=== PATIENT | male | born 1965 | race Caucasian/White ===

== ENCOUNTER → 2016-08-16 | Outpatient (CLI) | payer BC ==
[~2016-08-16] MED LIST: CALCTAB5 PO; CLR10 PO; MULT-506 PO; OMEG10007 PO
[2016-08-16 17:56] LABS: ALT/SGPT 47 U/L (12-78); AST/SGOT 19 U/L (15-37); BLOOD UREA NITROGEN 15 mg/dl (7-18); BUN/CREATININE RATIO 12.2 (10-20); CARBON DIOXIDE 24 mmol/L (21-32); CHLORIDE 104 mmol/L (98-107); GLUCOSE 85 mg/dl (70-99); MAGNESIUM 2.1 mg/dl (1.8-2.4); SODIUM 139 mmol/L (136-145)
[2016-08-16 18:07] LABS: ALB/GLOB RATIO 1.2 (0.9-2); ALKALINE PHOSPHATASE 86 U/L (45-117); THYROID STIMULATING HORMONE 0.497 uIu/ml (0.300-4.500)
[2016-08-16 18:20] LABS: LYME DISEASE AB IGG NEG (NEG); LYME DISEASE AB IGM NEG (NEG)
== END | disposition home or self-care (01) ==
LOC: C.LABPVFM 13:33
PROVIDERS: ATTEND Family Medicine
DX: R53.83 Other fatigue (principal); M79.1 Myalgia; M60.9 Myositis, unspecified

== ENCOUNTER → 2017-09-05 | Outpatient (CLI) | payer BC ==
[2017-09-05 12:54] LABS: HEMATOCRIT 49.1 % (42-52); HEMOGLOBIN 16.7 g/dL (14.0-18.0); MEAN CELL VOLUME 94.2 fL (80-100); MEAN CORPUSCULAR HEMOGLOBIN 32.1 pg (25-34); MEAN PLATELET VOLUME 9.9 fL (7.4-10.4); PLATELET COUNT 252 K/uL (130-400); RED CELL DISTRIBUTION WIDTH CV 14.4 % (11.5-14.5); RED CELL DISTRIBUTION WIDTH SD 49.9 fL (36.4-46.3); WHITE BLOOD COUNT 7.01 K/uL (4.8-10.8)
[2017-09-05 13:24] LABS: ALBUMIN 4.2 gm/dl (3.4-5.0); ALT/SGPT 47 U/L (12-78); AST/SGOT 27 U/L (15-37); BLOOD UREA NITROGEN 14 mg/dl (7-18); CALCIUM 8.9 mg/dl (8.5-10.1); CARBON DIOXIDE 25 mmol/L (21-32); GLUCOSE 90 mg/dl (70-99); POTASSIUM 4.3 mmol/L (3.5-5.1); SODIUM 136 mmol/L (136-145)
[2017-09-05 13:26] LABS: ALKALINE PHOSPHATASE 86 U/L (45-117); CHOLESTEROL 203 mg/dl (0-200); LDL CHOLESTEROL CALCULATED 114 mg/dl; TOTAL PROTEIN 8.3 gm/dl (6.4-8.2)
== END | disposition home or self-care (01) ==
LOC: C.LABPVFM 09:36
PROVIDERS: ATTEND Family Medicine
DX: E55.9 Vitamin D deficiency, unspecified (principal)

== ENCOUNTER 2024-07-13 16:02 | Observation (INO) ==
[2024-07-13] MEDS: ADENOSINE IV SOLN 3 MG/ML 2 ML VIAL IV STA ×2 (16:18→16:21)
--- NOTE | 2024-07-13 16:26 | Emergency Department Note ---
Impression & Plan SVT (supraventricular tachycardia), Elevated troponin ED Provider Note HISTORY OF PRESENT ILLNESS: Patient is a 58-year-old male presenting with tachycardia. Patient reports that around 12 noon today he started feeling like his heart was racing. He thought that symptoms were just improved, but after a very short walk with his he was still feeling like his heart rate was very high and decided to come get evaluated. He is complaining of some slight chest pressure with how fast his heart rate is going. He does report some slight shortness of breath as well. He denies ever having SVT before. Denies any recent medication changes. Denies any recreational drug use. Denies any DVT or PE history. He is not on any anticoagulation. He denies any excessive caffeine or energy drink use. ROS: as above PHYSICAL EXAM: Constitutional: Patient appears in no acute distress. HENT: Head: Normocephalic and atraumatic. Eyes: EOMI, PERRL Mouth/Throat: Mucous membranes moist. Neck: Trachea midline. Neck supple. Cardiovascular: Tachycardic with regular rhythm. No murmurs, rubs or gallops. Intact distal pulses. Pulmonary/Chest: No respiratory distress. Breath sounds clear and equal bilaterally. No wheezes or rales. Abdominal: Abdomen soft, no tenderness, rebound or guarding. Musculoskeletal: No edema, tenderness or deformity noted. Skin: Warm and dry. No rash, erythema, pallor or cyanosis Psychiatric: Appropriate mood and affect for situation. Neurological: Alert and keenly responsive. CN II-XII grossly intact, moving all extremities equally and fully. MDM: - Vitals signs showed tachycardia - History obtained via patient. History as above. - Chronic conditions affecting care: HTN; GERD - Differential diagnoses include, but are not limited to: ACS; sepsis; electrolyte abnormality; dysrhythmia; PE; pneumonia; dehydration; hyperthyroidism - Order placed for continuous cardiac monitoring. At this time, monitor showed rate of 101 bpm with normal sinus rhythm, per my interpretation. - External medical records reviewed. Primary care visit note dated 05/06/2024 was reviewed. Patient followed in their clinic for his multiple medical etiologies. He has a history of hypertension and BPH. - EKG obtained at 16:12 interpreted by myself showed supraventricular tachycardia. Rate 176 bpm. QT 258. No acute ischemic changes. - IV access was obtained and patient was placed on the rn cardiac. Patient was connected to pads for the cardiac cart. A bolus of normal saline was administered through one of the IVs. 6 mg of adenosine was initially given for chemical cardioversion. However, the patient did not convert out of his SVT. He was given additional 12 mg of IV adenosine. Patient was noted to go back into a normal sinus rhythm on rn cardiac. Repeat EKG obtained at 16:22 interpreted by myself showed normal sinus rhythm. Rate tachycardic at 108 bpm. QT 324. No acute ischemic changes. Patient's blood pressure stable in the 140s systolic after he was successfully chemically cardioverted to sinus rhythm. - Laboratory workup interpreted by myself showed normal WBC; stable electrolytes; normal TSH; normal PT/INR; elevated troponin (28.2) - CXR negative for pneumothorax or pneumonia, per my interpretation. - On further discussion with the patient, he does report significant family history of coronary artery disease in his father. - Patient's heart rate remained stable in the emergency department for over 2.5 hours in the 80s to 90s bpm. He has no chest pain or shortness of breath on reassessment. He did ambulate in the emergency department without any further elevation in his heart rate or flipping into a dysrhythmia. However, patient's repeat troponin elevated at 76.8. patient reports he has never had formal stress test or heart catheterization performed or any formal cardiac workup. - Discussion was had with therapeutic case manager about patient's case and need for admission - Hospitalist, Dr. Saldaña, consulted for admission. She requested cardiology consultation. - Discussed case with [facility] Materials Coordinator county home demonstration agent, Dr. Nix, at 19:39. She recommended that the patient be admitted and have an echocardiogram done in the morning. She believes that the EKG might show AV node reentry tachycardia. Recommends trending the troponins and echocardiogram in the morning. Passed along recommendations to inpatient hospitalist. - [facility] I have personally spent 37 minutes of critical care time in the direct management of this patient. This includes bedside care, interpretation of diagnostic studies, and testing, discussion with consultants, patient, and family members, and other required patient management activities. This 37 minutes is in excess of all separately billable procedures. ASSESSMENT AND PLAN: Diagnosis: SVT; elevated troponin Plan: admit Past Med/Surg History Problem List (Updated 07/13/24 @ 19:06 by Mary Jo Rodriguez MD) Elevated troponin (Acute) SVT (supraventricular tachycardia) (Acute) Lipoma Bilateral hip pain Acute right hip pain Low back pain radiating to lower extremity BPH (benign prostatic hypertrophy) Elevated hemoglobin A1c Ganglion cyst of tendon sheath of left hand Acute URI of multiple sites Cervical spinal stenosis Cervical radiculopathy Radicular pain in left arm Left shoulder pain Shoulder pain Cough due to MELVIN inhibitor HTN (hypertension), benign Screening for lipid disorders Screening for diabetes mellitus Exposure to COVID-19 virus Back problem GERD (gastroesophageal reflux disease) Elevated BP without diagnosis of hypertension (Acute) Routine health maintenance (Chronic) ED (erectile dysfunction) (Chronic) Paresthesias (Chronic) Vitamin D deficiency (Chronic) Encounter for pre-operative examination Perirectal abscess (Acute) Medical History Cervical radiculopathy History of rectal abscess has had I&D x 2 Cervical spinal stenosis has 75 % rom Low back pain GERD (gastroesophageal reflux disease) Hypertension BPH (benign prostatic hyperplasia) Osteoarthritis History of colon polyps Surgical History History of open reduction and internal fixation (ORIF) procedure right arm fracture, in highschool Hx of colonoscopy with polypectomy Status post incision and drainage (2017) Incision and Drainage [place] Rectal Abscess 04/27/15 Dr. Peralta also in 2017 in [place], [place] History of lymph node excision off right side of neck--benign History of oral surgery gum graft History of tooth extraction History of wisdom tooth extraction Family History Daughter Family history of reaction to anesthesia gets red/flushed and slight increase in temp---denies malignant hyperthermia Father Family hx colonic polyps Myocardial infarction Prostate cancer Heart disease Hypertension Mother Heart disease Hypertension Denies family history of Ovarian cancer Breast cancer Colorectal cancer Social History (Updated 05/08/24 @ 14:55 by Catherine Vale LPN) Smoking Status: Never smoker Tobacco Type: Smokeless Tobacco (Dip or Chew) Second Hand Exposure: No; Do You Dip or Chew Tobacco: Yes (1/2-1 can per day); Hx Alcohol Use: No Hx Substance Use: No Preferred Language: Arabic Communication Ability: Effective Visual Impairment: Limited Hearing Ability: Use of Hearing Aid Registry Rn Required: No Beliefs That Will Affect Care: None marital status: Current Living Situation: Spouse Current Living Situation Comment: Lives with and son. current occupational status: employed How many Children do You have: 2 Feels Safe at Home: Yes Childhood Exposure to Second-Hand Smoke: Yes Diet: regular caffeine: Yes during the past year weight has: remained stable Dental Care, Regularly: Yes Physical Activity Frequency: Does not Exercise Seatbelt Use: always Sunscreen Use: No Do you think of yourself as: straight/heterosexual Sexual Activity: has been sexually active within the last 12 months Gender Identity: Male Assistive Devices: Glasses and Hearing Aid - Bilateral Allergies Allergies Allergy/AdvReac Type Severity Reaction Status Date / Time sodium fluoride Allergy Mild Swelling Verified 07/11/24 13:00 of Lip/Tongue/Throat Home Meds Home Medications Medication Instructions Recorded Confirmed cholecalciferol (vitamin D3) 50 2,000 unit PO QAM 03/18/19 07/11/24 mcg (2,000 unit) tablet (Vitamin D3) multivitamin 1 tab PO QAM 03/18/19 07/11/24 naproxen sodium 220 mg capsule 220 mg PO QID PRN Pain 05/08/24 07/11/24 (Aleve) amlodipine 5 mg tablet 5 mg PO QAM 07/11/24 07/11/24 fexofenadine 180 mg tablet 180 mg PO DAILY PRN allergies 07/11/24 07/11/24 (Alissa Allergy) losartan 25 mg tablet 25 mg PO QAM 07/11/24 07/11/24 losartan 50 mg tablet 50 mg PO QAM 07/11/24 07/11/24 sulfamethoxazole 800 1 tab PO BID PRN abscess periananl 07/11/24 07/11/24 mg-trimethoprim 160 mg tablet (Bactrim DS) Previous Rx's Medication Instructions Recorded tadalafil 5 mg tablet (Cialis) 5 mg PO DAILY PRN sexual activity 03/04/22 #10 tabs cyclobenzaprine 10 mg tablet 10 mg PO TID PRN muscle spasm #25 07/05/23 tabs peg [id number] See Rx Instructions PO .COMPLEX #2 07/10/24 178.7-7.3-0.5-1.12-0.9 gram oral mL soln (Suflave) Results & Data (ED) Vital Signs Vital Signs - 24 hr 07/13/24 16:06 07/13/24 16:14 07/13/24 16:26 Temperature 36.5 C Temperature Source Temporal Artery Scan Pulse Rate 181 H 174 H Pulse Rate [Apical] Pulse Rhythm [Apical] Pulse Strength [Apical] Respiratory Rate 18 Respiratory Effort / Characteristics Non-Labored Spontaneous Respiratory Depth Normal Respiratory Pattern Blood Pressure 116/66 Blood Pressure [Right Arm] Blood Pressure Mean 82 Blood Pressure Mean [Right Arm] Blood Pressure Position [Right Arm] Pulse Oximetry 94 Oxygen Delivery Method Room Air Room Air Sepsis Recent Fever Within 48 Hours No Sepsis New/Unexplained Change in Mental Status No Sepsis Action Taken by Nursing No Action Required 07/13/24 16:26 07/13/24 16:28 07/13/24 18:03 Temperature Temperature Source Pulse Rate 102 H Pulse Rate [Apical] 101 H 96 H Pulse Rhythm [Apical] Regular Regular Pulse Strength [Apical] Normal Normal Respiratory Rate 20 18 Respiratory Effort / Characteristics Non-Labored Spontaneous Non-Labored Spontaneous Respiratory Depth Normal Normal Respiratory Pattern Regular Regular Blood Pressure Blood Pressure [Right Arm] 121/80 141/94 H Blood Pressure Mean Blood Pressure Mean [Right Arm] 93 109 Blood Pressure Position [Right Arm] Lying Lying Pulse Oximetry 95 95 Oxygen Delivery Method Room Air Room Air Sepsis Recent Fever Within 48 Hours Sepsis New/Unexplained Change in Mental Status Sepsis Action Taken by Nursing Laboratory Data 07/13/24 16:18 07/13/24 16:18 Lab Results 07/13/24 07/13/24 07/13/24 Range/Units 16:18 18:00 19:08 WBC 8.01 (4.8-10.8) K/ul RBC 5.33 (4.70-6.10) M/uL Hgb 17.1 (14.0-18.0) g/dl Hct 49.9 (42.0-52.0) % MCV 93.6 (80.0-100.0) fL MCH 32.1 (25.0-34.0) pg MCHC 34.3 (32.0-36.0) g/dL RDW Std Deviation 47.6 H (36.4-46.3) fL RDW Coeff of Courtney 13.8 (11.5-14.5) % Plt Count 289 (130-400) K/uL MPV 9.8 (9.4-12.4) fL Immature Gran % (Auto) 0.2 % Neut % (Auto) 53.3 % Lymph % (Auto) 29.3 % [place] % (Auto) 12.7 % Eos % (Auto) 3.5 % Baso % (Auto) 1.0 % Neut # (Auto) 4.26 (1.40-6.50) K/uL Lymph # (Auto) 2.35 (1.20-3.40) K/uL [place] # (Auto) 1.02 H (0.11-0.59) K/uL Eos # (Auto) 0.28 (0.00-0.50) K/uL Baso # (Auto) 0.08 (0.00-0.20) K/uL Immature Gran # (Auto) 0.02 (0.01-0.20) K/uL PT 10.3 (9.0-12.0) Seconds INR 0.9 (0.9-1.1) Sodium 139 (136-145) mmol/L Potassium 3.8 (3.5-5.1) mmol/L Chloride 104 (98-107) mmol/L Carbon Dioxide 27 (21-32) mmol/L Anion Gap 8 (3-11) BUN 15 (6-23) mg/dl Creatinine 1.12 (0.6-1.4) mg/dl Est Cr Clr Drug Dosing 87.9 ml/min eGFR 77.10 BUN/Creatinine Ratio 13.4 (10-20) Glucose 112 H (70-99(Fasting)) mg/dl Calcium 8.8 (8.6-10.3) mg/dl Magnesium 1.9 (1.7-2.4) mg/dl Total Bilirubin 0.6 (0.2-1.0) mg/dl AST 27 (13-39) U/L ALT 42 (7-52) U/L Alkaline Phosphatase 84 (34-104) U/L Troponin I High Sens 28.2 H 76.8 H* D (0-20) pg/ml Total Protein 7.3 (6.0-8.3) gm/dl Albumin 4.6 (3.4-5.0) gm/dl Globulin 2.7 (2.5-4.0) gm/dl Albumin/Globulin Ratio 1.7 (0.9-2) TSH 1.661 (0.300-4.500) uIu/ml Urine Color Yellow Urine Appearance Clear (Clear) Urine pH 7.5 (4.5-7.5) Ur Specific [place] 1.010 (1.000-1.030) Urine Protein Negative (Negative) Urine Glucose (UA) Negative (Negative) Urine Ketones Negative (Negative) Urine Blood Negative (Negative) Urine Nitrite Negative (Negative) Urine Bilirubin Negative (Negative) Urine Urobilinogen Negative (Negative) Ur Leukocyte Esterase Negative (Negative) Administered Medications Discontinued Medications Adenosine (Adenosine Iv Soln 3 Mg/Ml 2 Ml Vial) Confirm Administered Dose 12 mg IV .Headroom-MED ONE Stop: 07/13/24 16:15 Last Admin: 07/13/24 16:47 Dose: Not Given Documented By: PEDRO Adenosine (Adenosine Iv Soln 3 Mg/Ml 2 Ml Vial) 6 mg IV NOW STA Stop: 07/13/24 16:47 Last Admin: 07/13/24 16:18 Dose: 6 mg Documented By: PEDRO Adenosine (Adenosine Iv Soln 3 Mg/Ml 2 Ml Vial) 12 mg IV NOW STA Stop: 07/13/24 16:47 Last Admin: 07/13/24 16:21 Dose: 12 mg Documented By: PEDRO Imaging Data Radiologist's Impression: Chest X-Ray 07/13/24 16:23 INDICATION: Chest pain. TECHNIQUE: Frontal radiograph of the chest. COMPARISON: None. FINDINGS: Cardiomegaly. Low inspiratory depth. Pulmonary vasculature appear within normal limits. Subsegmental atelectasis in the lung bases. No infiltrate, pleural effusion or pneumothorax. No acute osseous abnormality evident. IMPRESSION: No acute cardiopulmonary process. Electronically signed by Austin Kincaid 07-13-2024 4:55 PM Discharge Plan Visit Data Chief Complaint: Tachycardia Stated Complaint: TACHYCARDIA,HTN,FEELS OFF ED Provider: Mary Jo Rodriguez Discharge Problem: SVT (supraventricular tachycardia), Elevated troponin Forms Stand Alone Forms: [facility] [employer] Prescriptions Prescriptions: No Action cyclobenzaprine 10 mg tablet 10 mg PO TID PRN (Reason: muscle spasm) Qty: 25 4RF Suflave 178.7-7.3-0.5 gram recon soln See Rx Instructions PO .COMPLEX Qty: 2 0RF Rx Instructions: orally; orally; TAKE FIRST DOSE AT 6 PM AND SECOND DOSE 6 HOURS PRIOR TO PROCEDURE BIN: [id number] PCN: [id number] GROUP: [id number] tadalafil [Cialis] 5 mg tablet 5 mg PO DAILY PRN (Reason: sexual activity) Qty: 10 0RF Rx Instructions: administer approximately 30min before sexual activity; do not use more than 1 dose per 24hrs naproxen sodium [Aleve] 220 mg capsule 220 mg PO QID PRN (Reason: Pain) multivitamin Tablet 1 tab PO QAM cholecalciferol (vitamin D3) [Vitamin D3] 2,000 unit Tablet 2,000 unit PO QAM losartan 50 mg tablet 50 mg PO QAM amlodipine 5 mg tablet 5 mg PO QAM sulfamethoxazole-trimethoprim [Bactrim DS] 800-160 mg tablet 1 tab PO BID PRN (Reason: abscess periananl) losartan 25 mg tablet 25 mg PO QAM Rx Instructions: take with the 50mg dose for a total of 75mg daily. fexofenadine [Alissa Allergy] 180 mg Tablet 180 mg PO DAILY PRN (Reason: allergies) Referrals Referrals: Carlene Gill MD [Primary Care Provider] -
[2024-07-13 16:41] LABS: Basophils # (auto) 0.08 K/uL (0.00-0.20); Eosinophils # (auto) 0.28 K/uL (0.00-0.50); Eosinophils % (auto) 3.5 %; Hematocrit (blood only) 49.9 % (42.0-52.0); Hemoglobin 17.1 g/dl (14.0-18.0); Immature Granulocytes # (auto) 0.02 K/uL (0.01-0.20); Immature Granulocytes % (auto) 0.2 %; Lymphocytes # (auto) 2.35 K/uL (1.20-3.40); Lymphocytes % (auto) 29.3 %; Mean Corpuscular Hemoglobin 32.1 pg (25.0-34.0); Mean Corpuscular Hgb Conc 34.3 g/dL (32.0-36.0); Mean Corpuscular Volume 93.6 fL (80.0-100.0); Mean Platelet Volume 9.8 fL (9.4-12.4); Monocytes # (auto) 1.02 K/uL (0.11-0.59); Monocytes % (auto) 12.7 %; Neutrophils # (auto) 4.26 K/uL (1.40-6.50); Neutrophils % (auto) 53.3 %; Platelet Count 289 K/uL (130-400); RDW Coefficient of Variation 13.8 % (11.5-14.5); RDW Standard Deviation 47.6 fL (36.4-46.3); Red Blood Count 5.33 M/uL (4.70-6.10); White Blood Count 8.01 K/ul (4.8-10.8)
[2024-07-13] MEDS: ADENOSINE IV SOLN 3 MG/ML 2 ML VIAL IV ONE (16:47)
[2024-07-13 16:49] LABS: Albumin Globulin Ratio 1.7 (0.9-2); Albumin Level 4.6 gm/dl (3.4-5.0); BUN Creatinine Ratio 13.4 (10-20); Bilirubin,Total 0.6 mg/dl (0.2-1.0); Calcium 8.8 mg/dl (8.6-10.3); Creatinine Clr Calc Pharmacy 87.9 ml/min; Globulin 2.7 gm/dl (2.5-4.0); Magnesium 1.9 mg/dl (1.7-2.4); Potassium 3.8 mmol/L (3.5-5.1); Total Protein 7.3 gm/dl (6.0-8.3)
[2024-07-13 16:55] LABS: Troponin I High Sensitivity 28.2 pg/ml (0-20)
--- NOTE | 2024-07-13 16:57 | XRay Report ---
INDICATION: Chest pain. TECHNIQUE: Frontal radiograph of the chest. COMPARISON: None. FINDINGS: Cardiomegaly. Low inspiratory depth. Pulmonary vasculature appear within normal limits. Subsegmental atelectasis in the lung bases. No infiltrate, pleural effusion or pneumothorax. No acute osseous abnormality evident. IMPRESSION: No acute cardiopulmonary process. Electronically signed by Austin Kincaid 07-13-2024 4:55 PM
[2024-07-13 17:04] LABS: Thyroid Stimulating Hormone 1.661 uIu/ml (0.300-4.500)
[2024-07-13 17:07] LABS: INR 0.9 (0.9-1.1); Prothrombin Time 10.3 Seconds (9.0-12.0)
[2024-07-13 19:27] LABS: Appearance Urine Clear (Clear); Bilirubin Urine Negative (Negative); Blood Urine Negative (Negative); Color Urine Yellow; Glucose Urine UA Negative (Negative); Ketones Urine Negative (Negative); Leukocyte Esterase Urine Negative (Negative); Nitrite Urine Negative (Negative); Protein Urine Negative (Negative); Urobilinogen Urine Negative (Negative); pH Urine 7.5 (4.5-7.5)
--- NOTE | 2024-07-13 19:50 | History & Physical Report ---
Date of Service July 13, 2024 Assessment & Plan (1) SVT (supraventricular tachycardia): (2) Elevated troponin: Plan 58-year-old with PMHx HTN, BPH, OA, GERD, and vitamin D deficiency presenting to ED for approximately 4 hours of palpitations. Symptoms started around noon on the day of arrival, when he felt his heart was racing. Had associated diaphoresis. No chest pain, no SOB. Never had this happen before. Patient received 6 mg then 12 mg of adenosine, EKG around 1630 NSR. Elevated troponin, 28.2 at repeat 76.8. EKG without ischemic changes. Otherwise labs grossly WNL, BioFire negative, CXR without acute process. #SVT/Elevated troponin/HTN HR 170s-180s on arrival, requiring 6mg then 12mg of adenosine. SVT broke ~ 1420 after 2nd dose adenosine, NS since, rate 80-90s. No history of SVT or additional cardiac history. No chest pain, pressure, palpitations or SOB. ED provider discussed case with cardiology. Does have elevated troponin, trending. BPs have been relatively stable during ED course and at time of admission. - Admit med/tele for observation overnight, hopeful d/c next day - On amlodipine 5mg and losartan 75mg total for HTN as outpatient - Troponin 28.2, 76.8 on repeat, will trend to peak; EKG w/o ischemic changes - Elevated troponin likely 2/2 SVT - Echo pending - Cardiology consulted- appreciate input + recs #Cervical spine stenosis- Cyclobenzaprine prn; follows with [facility] #ED- Cialis prn, did not take day of arrival Dispo: Admit, med/tele VTE prophylaxis: Lovenox This document was dictated utilizing Technical Machine. Please excuse any grammatical errors that may be secondary to use of this software. Admission and Anticipated Discharge Date Admission Date: 07/13/2024 History of Present Illness Chief Complaint: Tachycardia Primary Care Provider: Carlene Gill MD 58-year-old with PMHx HTN, BPH, OA, GERD, and vitamin D deficiency presenting to ED for approximately 4 hours of palpitations. Symptoms started around noon on the day of arrival, when he felt his heart was racing and he became diaphoretic. States he took a short walk with his a little while after this initially happened and he noticed that his heart rate continued to stay elevated so he came to be evaluated. Denying chest pain or pressure of any kind. No shortness of breath, palpitations, or N/V. Overall denying diarrhea/constipation, abdominal pain, numbness/tingling, fever/chills or LUTS. In the ED, patient was given adenosine 6 mg, then was found to still be in SVT so additional 12 mg of adenosine was given and patient broke SVT on EKG at 1622. Patient's troponin was found to be elevated 28.2, and repeat was 76.8. EKG without ischemic changes. Otherwise labs are grossly WNL, bio fire was negative and CXR revealed no acute process. Please see Dr. Saldaña's attestation for adjustments/additions to treatment plan. Allergies Allergy/AdvReac Type Severity Reaction Status Date / Time sodium fluoride Allergy Mild Swelling Verified 07/13/24 20:32 of Lip/Tongue/Throat Home Medications Medication Instructions Recorded Confirmed Type cholecalciferol (vitamin D3) 50 2,000 unit PO QAM 03/18/19 07/13/24 History mcg (2,000 unit) tablet (Vitamin D3) multivitamin 1 tab PO QAM 03/18/19 07/13/24 History tadalafil 5 mg tablet (Cialis) 5 mg PO DAILY PRN sexual activity 03/04/22 07/13/24 Rx #10 tabs cyclobenzaprine 10 mg tablet 10 mg PO TID PRN muscle spasm #25 07/05/23 07/13/24 Rx tabs naproxen sodium 220 mg capsule 220 mg PO QID PRN Pain 05/08/24 07/13/24 History (Aleve) peg 3350-sod [id number] See Rx Instructions PO .COMPLEX #2 07/10/24 07/13/24 Rx 178.7-7.3-0.5-1.12-0.9 gram oral mL soln (Suflave) amlodipine 5 mg tablet 5 mg PO QAM 07/11/24 07/13/24 History fexofenadine 180 mg tablet 180 mg PO DAILY PRN allergies 07/11/24 07/13/24 History (Alissa Allergy) losartan 25 mg tablet 25 mg PO QAM 07/11/24 07/13/24 History losartan 50 mg tablet 50 mg PO QAM 07/11/24 07/13/24 History sulfamethoxazole 800 1 tab PO BID PRN abscess periananl 07/11/24 07/13/24 History mg-trimethoprim 160 mg tablet (Bactrim DS) Past Med/Surg History Problem List Elevated troponin (Acute) SVT (supraventricular tachycardia) (Acute) Lipoma Bilateral hip pain Acute right hip pain Low back pain radiating to lower extremity BPH (benign prostatic hypertrophy) Elevated hemoglobin A1c Ganglion cyst of tendon sheath of left hand Acute URI of multiple sites Cervical spinal stenosis Cervical radiculopathy Radicular pain in left arm Left shoulder pain Shoulder pain Cough due to MELVIN inhibitor HTN (hypertension), benign Screening for lipid disorders Screening for diabetes mellitus Exposure to COVID-19 virus Back problem GERD (gastroesophageal reflux disease) Elevated BP without diagnosis of hypertension (Acute) Routine health maintenance (Chronic) ED (erectile dysfunction) (Chronic) Paresthesias (Chronic) Vitamin D deficiency (Chronic) Encounter for pre-operative examination Perirectal abscess (Acute) Medical History Cervical radiculopathy History of rectal abscess has had I&D x 2 Cervical spinal stenosis has 75 % rom Low back pain GERD (gastroesophageal reflux disease) Hypertension BPH (benign prostatic hyperplasia) Osteoarthritis History of colon polyps Surgical History History of open reduction and internal fixation (ORIF) procedure right arm fracture, in highschool Hx of colonoscopy with polypectomy Status post incision and drainage (2017) Incision and Drainage [place] Rectal Abscess 04/27/15 Dr. Peralta also in 2017 in [place], [place] History of lymph node excision off right side of neck--benign History of oral surgery gum graft History of tooth extraction History of wisdom tooth extraction Family History Daughter Family history of reaction to anesthesia gets red/flushed and slight increase in temp---denies malignant hyperthermia Father Family hx colonic polyps Myocardial infarction Prostate cancer Heart disease Hypertension Mother Heart disease Hypertension Denies family history of Ovarian cancer Breast cancer Colorectal cancer Social History Smoking Status: Never smoker Tobacco Type: Smokeless Tobacco (Dip or Chew) Second Hand Exposure: No; Do You Dip or Chew Tobacco: Yes (1/2-1 can per day); Hx Alcohol Use: No Hx Substance Use: No Preferred Language: Northern Irish Communication Ability: Effective Visual Impairment: Limited 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 current occupational status: employed How many Children do You have: 2 Feels Safe at Home: Yes Childhood Exposure to Second-Hand Smoke: Yes Diet: regular caffeine: Yes during the past year weight has: remained stable Dental Care, Regularly: Yes Physical Activity Frequency: Does not Exercise Seatbelt Use: always Sunscreen Use: No Do you think of yourself as: straight/heterosexual Sexual Activity: has been sexually active within the last 12 months Gender Identity: Male Assistive Devices: Glasses and Hearing Aid - Bilateral Review of Systems Review of Systems: All systems reviewed & are unremarkable except as noted in Subjective Physical Exam Physical Exam: General: No acute distress Skin: Warm and dry, without rashes or lesions Head: Normocephalic, atraumatic Eyes: PERRL, conjunctivae clear, sclera non-icteric; EOM intact ENT: External ear and ear canal without swelling; nose atraumatic; good dentition, tongue normal appearance, pharynx normal Neck: Supple, no LAD; no JVD Cardio: Tachycardia ~ 90s, regular rhythm, no M/G/R, S1 and S2 normal Resp: No respiratory distress, Lungs CTA in all lobes bilaterally, no wheezes, rales, or rhonchi Abdomen: Soft, symmetric, nontender; no distention; No masses or hepatospl enomegaly; Bowel sounds normoactive MSK: No deformities, full ROM throughout; pulses palpable and equal; no edema. Neuro: Awake, alert; CN grossly intact Psych: Appropriate mood and affect; good judgement and insight. present in room at time of visit. Results & Data Results & Data Vital Signs (Past 12 Hours) Vital Signs Temp Pulse Pulse Resp BP BP Pulse Ox 07/13/24 18:03 96 H 18 141/94 H 95 07/13/24 16:28 102 H 07/13/24 16:26 101 H 20 121/80 95 07/13/24 16:26 07/13/24 16:14 174 H 07/13/24 16:06 36.5 C 181 H 18 116/66 94 O2 Del Method 07/13/24 18:03 Room Air 07/13/24 16:28 07/13/24 16:26 Room Air 07/13/24 16:26 Room Air 07/13/24 16:14 07/13/24 16:06 Room Air Laboratory Results 07/13/24 07/13/24 07/13/24 19:08 18:00 16:18 WBC 8.01 RBC 5.33 Hgb 17.1 Hct 49.9 MCV 93.6 MCH 32.1 MCHC 34.3 RDW Std Deviation 47.6 H RDW Coeff of Courtney 13.8 Plt Count 289 MPV 9.8 Immature Gran % (Auto) 0.2 Neut % (Auto) 53.3 Lymph % (Auto) 29.3 [place] % (Auto) 12.7 Eos % (Auto) 3.5 Baso % (Auto) 1.0 Neut # (Auto) 4.26 Lymph # (Auto) 2.35 [place] # (Auto) 1.02 H Eos # (Auto) 0.28 Baso # (Auto) 0.08 Immature Gran # (Auto) 0.02 PT 10.3 INR 0.9 Sodium 139 Potassium 3.8 Chloride 104 Carbon Dioxide 27 Anion Gap 8 BUN 15 Creatinine 1.12 Est Cr Clr Drug Dosing 87.9 eGFR 77.10 BUN/Creatinine Ratio 13.4 Glucose 112 H Calcium 8.8 Magnesium 1.9 Total Bilirubin 0.6 AST 27 ALT 42 Alkaline Phosphatase 84 Troponin I High Sens 76.8 H* D 28.2 H Total Protein 7.3 Albumin 4.6 Globulin 2.7 Albumin/Globulin Ratio 1.7 TSH 1.661 Urine Color Yellow Urine Appearance Clear Urine pH 7.5 Ur Specific [place] 1.010 Urine Protein Negative Urine Glucose (UA) Negative Urine Ketones Negative Urine Blood Negative Urine Nitrite Negative Urine Bilirubin Negative Urine Urobilinogen Negative Ur Leukocyte Esterase Negative Diagnostic Findings Chest X-Ray 07/13/24 16:23 INDICATION: Chest pain. TECHNIQUE: Frontal radiograph of the chest. COMPARISON: None. FINDINGS: Cardiomegaly. Low inspiratory depth. Pulmonary vasculature appear within normal limits. Subsegmental atelectasis in the lung bases. No infiltrate, pleural effusion or pneumothorax. No acute osseous abnormality evident. IMPRESSION: No acute cardiopulmonary process. Electronically signed by Sanjiv Austin 07-13-2024 4:55 PM Medications Administered Adenosine 6mg, 12mg ECG Additional Comments: 1413 SVT, incomplete RBBB 176bpm, QRS 94, QT/QTc 258/441, PRT */ 1422 Sinus tachycardia 108 bpm, [place] 176, QRS 96, QT/QTc 324/444, PRT 34/21/88 Code Status & VTE Plan Code Status Full Supervising Physician Co-Signing Physician Notes Patient seen and examined, chart reviewed, case discussed with ABELINO Andrew and I agree with the assessment and plan as above. Patient is a 58yo male with HTN, no known cardiac history presenting with palpitations. Found to be in SVT which converted to NSR following Adenosine 6mg + 12mg. Patient has been in NSR since. Asymptomatic. Denies chest pain. On exam he is resting comfortably, NAD Skin - intact, no rashes HEENT - MMM, neck supple, No JVD Heart- +S1/S2, regular, no m/r/g Lungs - CTA, no rales/rhonchi/wheezes Abd - Soft, NT/ND Ext - warm, well perfused, no clubbing/cyanosis or edema EKGs, Labs and images independently reviewed Electrolytes and TSH WNL Trop=28.2 --> 76.8 Assessment/Plan 58yo male presenting with SVT, possible re-entry tachycardia now converted to NSR following Adenosine 6mg + 12mg IV -Observation to medical with telemetry -Trend troponin to peak -Check 2D echo -Cardiology consultation appreciated -Continue home medications - consider addition of beta buzz for added blood pressure control -Remainder as above PG Care Time/CCT Total # of Minutes Spent Total Time Spent with Patient: Total time spent is greater than 50% in coordination of care (as documented) at patient's floor/unit and/or counseling patient: Coding Level of Care Code 64677 INT INP/OBS CARE 3/75MIN Diagnoses SVT (supraventricular tachycardia) I47.10 Elevated troponin R79.89
[2024-07-13] MEDS ORDERED: FEXOFENADINE HCL 180 MG TAB PO PRN (21:52)
[2024-07-13] MEDS ORDERED: CYCLOBENZAPRINE HCL 10 MG TAB PO PRN (21:52)
[2024-07-13] MEDS ORDERED: ACETAMINOPHEN 325 MG TAB PO PRN (21:52)
[2024-07-13] MEDS ORDERED: MELATONIN 3 MG TAB PO PRN (21:52)
[2024-07-13] MEDS ORDERED: ONDANSETRON INJ 2 MG/ML 2 ML VIAL IV PRN (21:52)
[2024-07-13] MEDS ORDERED: POLYETHYLENE (MIRALAX) 17 GM PACK PO PRN (21:52)
[2024-07-13] MEDS ORDERED: MAGNESIUM HYDROXIDE SUSP 30 ML UDC PO PRN (21:52)
[2024-07-13] MEDS ORDERED: NAPROXEN 250 MG TAB PO PRN (21:57)
[2024-07-13] MEDS: ENOXAPARIN INJ 40 MG/0.4 ML SYR SQ SCH (22:38)
[2024-07-14] MEDS ORDERED: METOPROLOL SUCC 25MG EXT REL TAB PO SCH
[2024-07-14 07:25] VITALS: RESP 16; TEMP 97.7
[2024-07-14] MEDS: LOSARTAN POTASSIUM 25 MG TAB PO SCH (08:00)
[2024-07-14] MEDS: amLODIPine BESYLATE 5 MG TAB PO SCH (08:01)
[2024-07-14] MEDS: CHOLECALCIFEROL 25 MCG (1000 UNITS) TAB PO SCH (08:01)
[2024-07-14] MEDS: LOSARTAN POTASSIUM 50 MG TAB PO SCH (08:01)
[2024-07-14] MEDS: METOPROLOL TARTRATE 25 MG TAB PO SCH (09:39)
[2024-07-14 09:40] VITALS: PULSE 85; O2SAT 96
--- NOTE | 2024-07-14 09:41 | Electrocardiogram Report ---
Test Reason : Blood Pressure : */* mmHG Vent. Rate : 176 BPM Atrial Rate : * BPM P-R Int : * ms QRS Dur : 94 ms QT Int : 258 ms P-R-T Axes : * 24 64 degrees QTcB Int : 441 ms Supraventricular tachycardia suspect AV Node reentrant tachycardia Incomplete right bundle branch block Borderline ECG No previous ECGs available Confirmed by Anju Nix (Vaughn) on 07/14/2024 9:40:52 AM Referred By: REFERRED SELF Confirmed By: Anju Nix
--- NOTE | 2024-07-14 09:41 | Electrocardiogram Report ---
Test Reason : Blood Pressure : */* mmHG Vent. Rate : 108 BPM Atrial Rate : 108 BPM P-R Int : 176 ms QRS Dur : 96 ms QT Int : 324 ms P-R-T Axes : 34 21 58 degrees QTcB Int : 434 ms Sinus tachycardia Otherwise normal ECG When compared with ECG of 13-Jul-2024 16:12, (unconfirmed) Vent. rate has decreased by 68 bpm NSR has replaced AVNRT Confirmed by Anju Nix ([id number]) on 07/14/2024 9:41:18 AM Referred By: REFERRED SELF Confirmed By: Anju Nix
--- NOTE | 2024-07-14 10:48 | Hospitalist Progress Note ---
Date of Service July 14, 2024 Assessment & Plan (1) SVT (supraventricular tachycardia): Plan: He converted to normal sinus rhythm with intravenous adenosine. Amlodipine has been switched to metoprolol. He has been seen by cardiology. Cardiac echo was unremarkable (2) Elevated troponin: Plan: Downtrending. No chest pain. No acute EKG changes. No evidence of acute coronary syndrome Plan Home today, July 14, on metoprolol XL 25 mg daily. He will follow-up with cardiology as an outpatient and also wear a heart monitor for a while. Admission and Anticipated Discharge Date Admission Date: July 13, 2024 Subjective Alert and oriented. He remains in normal sinus rhythm. He has been seen by cardiology. Cardiac echo was unremarkable. Free T3 level and free T4 level are normal. Amlodipine was switched to metoprolol and he will be discharged home on this todayJuly 14 Review of Systems 2 Review of Systems: Constitutionalno fever or chills ENTno blurred vision, no double vision, no epistaxis, no sore throat Respiratoryno cough, no wheezing, no shortness of breath Cardiacpalpitations have resolved. No chest pain. No syncope German nausea, vomiting, diarrhea, melena, hematochezia GUno urinary retention, no urinary incontinence, no dysuria, no hematuria Musculoskeletalno joint pain, no muscle tenderness Skinno bruising, no rashes, no pruritus Neurono isolated weakness, no paresthesia, no weakness Psychno depression, no anxiety Physical Exam 2 Physical Exam: General-alert and oriented x3, no fever, no chills HEENT-head atraumatic and normocephalic, pupils equal and reactive to light, extraocular muscles intact Neck-no lymphadenopathy or thyromegaly, trachea midline Chest-clear to auscultation. No rales, wheezing or rhonchi Cardiac-regular rate and rhythm, normal S1 and S2 Abdomen-normal bowel sounds, no hepatosplenomegaly Extremities-no cyanosis, clubbing, or edema Neuro-cranial nerves II through XII intact, motor and sensory function within normal limits, strength symmetrical, no focal deficits Psych-normal affect, normal mood Results & Data Results & Data Vital Signs (Past 12 Hours) Vital Signs Temp Pulse Pulse Resp BP BP Pulse Ox 07/14/24 09:39 85 16 167/96 H 96 07/14/24 07:24 36.5 C 80 16 148/88 H 95 07/14/24 07:05 89 07/14/24 04:11 36.6 C 87 20 159/103 H 96 07/14/24 00:05 36.6 C 93 H 20 135/83 95 07/13/24 23:00 103 H O2 Del Method 07/14/24 09:39 Room Air 07/14/24 07:24 Room Air 07/14/24 07:05 07/14/24 04:11 Room Air 07/14/24 00:05 Room Air 07/13/24 23:00 Laboratory Results 07/13/24 16:18 07/13/24 16:18 PG Care Time/CCT Total # of Minutes Spent Total Time Spent with Patient: Total time spent is greater than 50% in coordination of care (as documented) at patient's floor/unit and/or counseling patient: Coding Level of Care Code 84143 SUB INP/OBS CARE 2/35MIN Diagnoses SVT (supraventricular tachycardia) I47.10 Elevated troponin R79.89
--- NOTE | 2024-07-14 10:52 | Discharge Summary ---
Discharge Summary Date of Service July 14, 2024 Principal Dx & Hospital Course #1 = Principal Diagnosis (1) SVT (supraventricular tachycardia): He converted to normal sinus rhythm with intravenous adenosine. Amlodipine has been switched to metoprolol. He has been seen by cardiology. Cardiac echo was unremarkable. Thyroid levels are normal (2) Elevated troponin: Downtrending. No chest pain. No acute EKG changes. No evidence of acute coronary syndrome Plan Home today, July 14, on metoprolol XL 25 mg daily. He will follow-up with cardiology as an outpatient and also wear a heart monitor for a while. Admission HPI Per Admitting Provider 58-year-old with PMHx HTN, BPH, OA, GERD, and vitamin D deficiency presenting to ED for approximately 4 hours of palpitations. Symptoms started around noon on the day of arrival, when he felt his heart was racing and he became diaphoretic. States he took a short walk with his a little while after this initially happened and he noticed that his heart rate continued to stay elevated so he came to be evaluated. Denying chest pain or pressure of any kind. No shortness of breath, palpitations, or N/V. Overall denying diarrhea/constipation, abdominal pain, numbness/tingling, fever/chills or LUTS. In the ED, patient was given adenosine 6 mg, then was found to still be in SVT so additional 12 mg of adenosine was given and patient broke SVT on EKG at 1622. Patient's troponin was found to be elevated 28.2, and repeat was 76.8. EKG without ischemic changes. Otherwise labs are grossly WNL, bio fire was negative and CXR revealed no acute process. Please see Dr. Saldaña's attestation for adjustments/additions to treatment plan. Discharge Exam General-alert and oriented x3, no fever, no chills HEENT-head atraumatic and normocephalic, pupils equal and reactive to light, extraocular muscles intact Neck-no lymphadenopathy or thyromegaly, trachea midline Chest-clear to auscultation. No rales, wheezing or rhonchi Cardiac-regular rate and rhythm, normal S1 and S2 Abdomen-normal bowel sounds, no hepatosplenomegaly Extremities-no cyanosis, clubbing, or edema Neuro-cranial nerves II through XII intact, motor and sensory function within normal limits, strength symmetrical, no focal deficits Psych-normal affect, normal mood Discharge Plan Discharge Items Patient Disposition: Home - Self-Care Reason For Visit: SVT, ELEVATED TROP Discharge Diagnosis: PSVT, elevated troponin without acute coronary syndrome Activity: Resume your previous activity Non-emergency contact: Primary Care Provider and Knife Finisher Call non-emergency contact if: your symptoms worsen Follow-up/Referrals: Carlene Gill MD [Primary Care Provider] - 07/22/24 11:30 am Diet: Regular Addtl Attending Provider Instructions: Amlodipine has been switched to metoprolol XL 25 mg daily. [facility] Wear heart monitor as prescribed by cardiology and follow-up with PCP and monument carver as soon as possible. Pending Studies at Discharge: No Stand-Alone Forms: My [employer], Smoking Cessation Medications and DC Order Prescriptions: New metoprolol succinate 25 mg tablet extended release 24 hr 25 mg PO DAILY Qty: 30 0RF Continued cyclobenzaprine 10 mg tablet 10 mg PO TID PRN (Reason: muscle spasm) Qty: 25 4RF Suflave 178.7-7.3-0.5 gram recon soln See Rx Instructions PO .COMPLEX Qty: 2 0RF Patient Comments: Rx Instructions: orally; orally; TAKE FIRST DOSE AT 6 PM AND SECOND DOSE 6 HOURS PRIOR TO PROCEDURE BIN: [id number] N: 2000 GROUP: [id number] tadalafil [Cialis] 5 mg tablet 5 mg PO DAILY PRN (Reason: sexual activity) Qty: 10 0RF Rx Instructions: administer approximately 30min before sexual activity; do not use more than 1 dose per 24hrs naproxen sodium [Aleve] 220 mg capsule 220 mg PO QID PRN (Reason: Pain) multivitamin Tablet 1 tab PO QAM cholecalciferol (vitamin D3) [Vitamin D3] 2,000 unit Tablet 2,000 unit PO QAM losartan 50 mg tablet 50 mg PO QAM sulfamethoxazole-trimethoprim [Bactrim DS] 800-160 mg tablet 1 tab PO BID PRN (Reason: abscess periananl) losartan 25 mg tablet 25 mg PO QAM Rx Instructions: take with the 50mg dose for a total of 75mg daily. fexofenadine [Alissa Allergy] 180 mg Tablet 180 mg PO DAILY PRN (Reason: allergies) Discontinued amlodipine 5 mg tablet 5 mg PO QAM Discharge Orders: Discharge Order (Routine); Ordered 07/14/24 Ordered By: Allen Crouch Admission Data Admit Date/Time: 07/13/24 20:08 Attending Provider: Allen Crouch Admit Provider: Joanie Saldaña Primary Care Provider: Carlene Gill Other Providers: Joanie Saldaña; Anju Nix Hospital Stay Data Consultations 07/13/24 19:02 ED Decision to Admit Stat 07/13/24 21:52 Consult Cardiology Routine Pending Results Patient Have Any Pending Studies at Discharge: No Discharge Instructions Given to Patient (Per Discharging Provider) Amlodipine has been switched to metoprolol XL 25 mg daily. [facility] Wear heart monitor as prescribed by cardiology and follow-up with PCP and monument carver as soon as possible. Total Time Total Time Spent Total Time Spent (In Minutes): 50 minutes Coding Level of Care Code 25667 INP/OBS DISCH >30 MIN Diagnoses SVT (supraventricular tachycardia) I47.10 Elevated troponin R79.89
--- NOTE | 2024-07-14 10:59 | Cardiology Consultation ---
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 DC on ASA 81mg and longacting metoprolol. Will set up for OP Event monitor and eventually a stress test. Pt instructed to watch BP at home with change in meds. We discussed in prelim terms, consideration for EP eval as well as ablation for a potential cure of the SVT. 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 I will f/u with him 3-4 weeks. Thank you for allowing me to participate in his care. History of Present Illness Reason for Consultation: eval SVT Attending Physician: Allen Crouch MD History of Present Illness Mr. 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 Initial troponin was negative, but 2nd was slightly increased. He had no CP or SOB with the SVT, just an awareness of the tachycardia. Interestingly, he had prior hx of palpitations and fluttering, but never had sustained episodes. He had prior monitors which were negative, but did not have symptoms while wearing them. Overall this am he feels well. He is very active with his work and home. I reviewed his ECHO showing normal LV function with mild LVH. I think he is ok for DC today. would switch his amlodipine out for long acting metoprolol XL 25mg or 50mg at hs and stay on the losartan, as well as ASA 81mg daily. I will arrange for him to have an outpatient EVENT monitor and then will follow up with him as an outpatient. His father had a hx of somewhat premature CAD/GA and presented as an arrest many years ago. His father sees Dr. Armstrong. I will rec that we do outpatient stress testing on him as well given the family hx. Allergies Allergy/AdvReac Type Severity Reaction Status Date / Time sodium fluoride Allergy Mild Swelling Verified 07/13/24 20:32 of Lip/Tongue/Throat Home Medications Medication Instructions Recorded Confirmed Type cholecalciferol (vitamin D3) 50 2,000 unit PO QAM 03/18/19 07/13/24 History mcg (2,000 unit) tablet (Vitamin D3) multivitamin 1 tab PO QAM 03/18/19 07/13/24 History tadalafil 5 mg tablet (Cialis) 5 mg PO DAILY PRN sexual activity 03/04/22 07/13/24 Rx #10 tabs cyclobenzaprine 10 mg tablet 10 mg PO TID PRN muscle spasm #25 07/05/23 07/13/24 Rx tabs naproxen sodium 220 mg capsule 220 mg PO QID PRN Pain 05/08/24 07/13/24 History (Aleve) peg 3350-sod [id number] See Rx Instructions PO .COMPLEX #2 07/10/24 07/13/24 Rx 178.7-7.3-0.5-1.12-0.9 gram oral mL soln (Suflave) amlodipine 5 mg tablet 5 mg PO QAM 07/11/24 07/13/24 History fexofenadine 180 mg tablet 180 mg PO DAILY PRN allergies 07/11/24 07/13/24 History (Alissa Allergy) losartan 25 mg tablet 25 mg PO QAM 07/11/24 07/13/24 History losartan 50 mg tablet 50 mg PO QAM 07/11/24 07/13/24 History sulfamethoxazole 800 1 tab PO BID PRN abscess periananl 07/11/24 07/13/24 History mg-trimethoprim 160 mg tablet (Bactrim DS) metoprolol succinate 25 mg 25 mg PO DAILY #30 tabs 07/14/24 Rx tablet,extended release 24 hr Patient History Medical History Cervical radiculopathy History of rectal abscess has had I&D x 2 Cervical spinal stenosis has 75 % rom Low back pain GERD (gastroesophageal reflux disease) Hypertension BPH (benign prostatic hyperplasia) Osteoarthritis History of colon polyps Surgical History History of open reduction and internal fixation (ORIF) procedure right arm fracture, in highschool Hx of colonoscopy with polypectomy Status post incision and drainage (2017) Incision and Drainage [place] Rectal Abscess 04/27/15 Dr. Peralta also in 2017 in [place] History of lymph node excision off right side of neck--benign History of oral surgery gum graft History of tooth extraction History of wisdom tooth extraction Family History Daughter Family history of reaction to anesthesia gets red/flushed and slight increase in temp---denies malignant hyperthermia Father Family hx colonic polyps Myocardial infarction Prostate cancer Heart disease Hypertension Mother Heart disease Hypertension Denies family history of Ovarian cancer Breast cancer Colorectal cancer Social History Smoking Status: Never smoker Tobacco Type: Smokeless Tobacco (Dip or Chew) Second Hand Exposure: No; Do You Dip or Chew Tobacco: Yes; Hx Alcohol Use: No Hx Substance Use: No Preferred Language: Khmer Communication Ability: Effective Visual Impairment: Limited Hearing Ability: Use of Hearing Aid Rn Call Center Required: No Beliefs That Will Affect Care: None marital status: Current Living Situation: Spouse Current Living Situation Comment: Lives with and son. current occupational status: employed How many Children do You have: 2 Feels Safe at Home: Yes Childhood Exposure to Second-Hand Smoke: Yes Diet: regular caffeine: Yes during the past year weight has: remained stable Dental Care, Regularly: Yes Physical Activity Frequency: Does not Exercise Seatbelt Use: always Sunscreen Use: No Do you think of yourself as: straight/heterosexual Sexual Activity: has been sexually active within the last 12 months Gender Identity: Male Assistive Devices: Glasses and Hearing Aid - Bilateral Review of Systems Review of Systems: All systems reviewed & are unremarkable except as noted in HPI & below Physical Exam Physical Exam: well developed in NAD Respiratory: normal respiratory effort, lungs clear to auscultation Cardiovascular: RRR, no murmur, no edema Results & Data Vital Signs (Past 12 Hours) Vital Signs Temp Pulse Pulse Resp BP BP Pulse Ox 07/14/24 09:39 85 16 167/96 H 96 07/14/24 07:24 36.5 C 80 16 148/88 H 95 07/14/24 07:05 89 07/14/24 04:11 36.6 C 87 20 159/103 H 96 07/14/24 00:05 36.6 C 93 H 20 135/83 95 07/13/24 23:00 103 H O2 Del Method 07/14/24 09:39 Room Air 07/14/24 07:24 Room Air 07/14/24 07:05 07/14/24 04:11 Room Air 07/14/24 00:05 Room Air 07/13/24 23:00 Laboratory Results Abnormal lab results 07/13/24 07/13/24 07/14/24 Range/Units 16:18 18:00 00:15 RDW Std Deviation 47.6 H (36.4-46.3) fL [place] # (Auto) 1.02 H (0.11-0.59) K/uL Glucose 112 H (70-99(Fasting)) mg/dl Troponin I High Sens 28.2 H 76.8 H* D 83.2 H* (0-20) pg/ml 07/14/24 Range/Units 07:27 RDW Std Deviation (36.4-46.3) fL [place] # (Auto) (0.11-0.59) K/uL Glucose (70-99(Fasting)) mg/dl Troponin I High Sens 44.7 H D (0-20) pg/ml Diagnostic Findings ECHO as described above Medications Administered Current Inpatient Medications Acetaminophen (Acetaminophen 325 Mg Tab) 650 mg PO Q4H PRN PRN Reason: pain/fever Stop: 08/12/24 21:51 Cyclobenzaprine HCl (Cyclobenzaprine Hcl 10 Mg Tab) 10 mg PO TID PRN PRN Reason: muscle spasm Stop: 08/12/24 21:51 Enoxaparin Sodium (Enoxaparin Inj 40 Mg/0.4 Ml Syr) 40 mg SQ Q24H KAI Stop: 08/12/24 21:59 Last Admin: 07/13/24 22:38 Dose: 40 mg Fexofenadine HCl (Fexofenadine Hcl 180 Mg Tab) 180 mg PO DAILY PRN PRN Reason: allergies Stop: 08/12/24 21:51 Losartan Potassium (Losartan Potassium 50 Mg Tab) 50 mg PO QAM KAI Stop: 08/13/24 08:59 Last Admin: 07/14/24 08:01 Dose: 50 mg Losartan Potassium (Losartan Potassium 25 Mg Tab) 25 mg PO QAM [facility] Stop: 08/13/24 08:59 Last Admin: 07/14/24 08:00 Dose: 25 mg Magnesium Hydroxide (Magnesium Hydroxide Susp 30 Ml Udc) 30 ml PO Q6H PRN PRN Reason: Constipation Stop: 08/12/24 21:51 Melatonin (Melatonin 3 Mg Tab) 3 mg PO HS PRN PRN Reason: Insomnia Stop: 08/12/24 21:51 Metoprolol Tartrate (Metoprolol Tartrate 25 Mg Tab) 25 mg PO BID [facility] Stop: 08/13/24 08:59 Last Admin: 07/14/24 09:39 Dose: 25 mg Naproxen (Naproxen 250 Mg Tab) 250 mg PO QID PRN PRN Reason: Pain Stop: 08/12/24 21:56 Ondansetron HCl (Ondansetron Inj 2 Mg/Ml 2 Ml Vial) 4 mg IV Q6H PRN PRN Reason: Nausea Stop: 08/12/24 21:51 Polyethylene Glycol (Polyethylene (Miralax) 17 Gm Pack) 17 gm PO DAILY PRN PRN Reason: Constipation Stop: 08/12/24 21:51 Vitamin D (Cholecalciferol 25 Mcg (1000 Units) Tab) 50 mcg PO QAM [facility] Stop: 08/13/24 08:59 Last Admin: 07/14/24 08:01 Dose: 50 mcg
[2024-07-14 11:08] VITALS: BP 135/83
== END 2024-07-14 11:39 | disposition home or self-care (01) ==
LOC: ED 16:02 → 2N 16:02 → SUATTDRO 20:08 → 2N 21:19